=== PATIENT | female | born 1955 | race Caucasian/White ===

== ENCOUNTER 2016-06-01 05:58 | Inpatient (IN) | payer BC ==
[~2016-06-01] VITALS: Ht 162.6 cm; Wt 85.7 kg
[2016-06-01] VITALS (24 sets, daily range): BP systolic 95–148; BP diastolic 50–99; PULSE 57–83; RESP 15–20; Ht 162.6 cm; Wt 85.7 kg
[2016-06-01] MEDS ORDERED: BUPIVACAINE 0.25%/EPI (SDV) 30 ML INJ ONE ×2 (06:50→09:59)
[2016-06-01] MEDS ORDERED: THROMBIN 5000 UNIT VIAL ONE (06:50)
--- NOTE | 2016-06-01 06:59 | PREOPHP ---
DATE OF ADMISSION: 06/01/2016 This patient is coming tomorrow for a vaginal hysterectomy to surgery. HISTORY OF PRESENT ILLNESS: This is a 60-year-old female, 10, para 2, abortions 8. The pat ient with a last menstrual period in 2011. She had consulted me, referred by another physician due to a mass that was coming out of herself and she was very uncomfortable, and she had been having thi s problem of pelvic pressure with vaginal changes and dryness and burning sensation for a long time and it is getting worse lately. PAST MEDICAL HISTORY: The patient has a history of 20 years ago having a left breast cancer at [facility] time she had a mastectomy and radiation 10 years ago. She had a right breast cancer and she had m astectomy and radiation as well with no chemo. She also has a history of hypertension. ALLERGIES: HAS NO ALLERGIES. MEDICATIONS: She uses atenolol and amlodipine. FAMILY HISTORY: Mother with breast cancer, at the age of 90 and father of blood pressure issues. REVIEW OF SYSTEMS: Contributory only for hypertension. She has no history of asthma. No history o f bronchitis. No endocrine disease. She does have a history of losing urine when she sneezes or co ughs. SOCIAL HISTORY: She does not drink or smoke. At the present time she had a partner for the last 15 years. She is sexually active. She only had 3 sexual partners in her lifetime. PHYSICAL EXAMINATION: GENERAL APPEARANCE: Good. VITAL SIGNS: The blood pressure is 112/70, pulse is 80, temperature is 98.6, she weighs 181. She i s 5 feet 4 inches. EXTREMITIES: Normal. The left breast was absent. The right breast had a lumpectomy. CHEST: Clear. HEART: Normal sinus rhythm. BACK: Normal. ABDOMEN: Soft, nontender, no masses. GENITALIA: With a cystourethrocele, grade III and rectocele, grade III. Cervix is healthy. Uterus is prolapsed grade III to IV, and adnexa were nonpalpable. DIAGNOSES: Uterine vaginal prolapse, grade IV, complete uterovaginal procidentia cystocele, urinary stress incontinence, rectocele, constipation, previous right and left breast cancer with a right bruna mpectomy and left mastectomy. She was offered a vaginal total hysterectomy, anterior and posterior repair and a sling, graft and possible bilateral salpingo-oophorectomy. The patient was advised of the possible risks and possible complications of the procedure with the alternatives and options. S he was explained about an ultrasound that revealed that the uterus had multiple fibroids, that they were different sizes and the right ovary and left ovary were normal. The patient was advised that t here is a possibility that I need to do this procedure transabdominally if I cannot make it through vaginally and the procedure should be a vaginal total hysterectomy, possible bilateral salpingo-ooph orectomy, possible total abdominal hysterectomy, anterior and posterior repair, suburethral sling. She has been advised of the possible risks and possible complications of the procedure with her alte rnatives and options. Written information was provided. She had no more questions and agreed to go ahead with the procedure with full understanding and no more questions. Dictated By: ANALISA WADE/ROSALINA Conf#: [id number] DID#: [id number]
[2016-06-01] MEDS ORDERED: CEFAZOLIN 1 GM INJ ONE (07:00)
[2016-06-01] MEDS ORDERED: HYD25 PO (07:00)
[2016-06-01] MEDS ORDERED: ATEN50TA PO (07:00)
[2016-06-01] MEDS ORDERED: CEFAZOLIN 2 GM/50 ML (PMX) 50 ML IVPB SCH (07:00)
[2016-06-01] MEDS ORDERED: PROPOFOL 200 MG INJ ONE (07:00)
[2016-06-01] MEDS ORDERED: ETOMIDATE 20 MG INJ ONE (07:00)
[2016-06-01] MEDS ORDERED: TRIA0.2521 PO (07:00)
[2016-06-01] MEDS ORDERED: AMLO2.5T78 PO (07:00)
[2016-06-01] MEDS ORDERED: LIDOCAINE 100 MG SYRINGE ONE (07:39)
[2016-06-01] MEDS ORDERED: PROPOFOL 100 ML ONE (07:39)
[2016-06-01] MEDS ORDERED: NEOSTIGMINE 3 MG/3 ML SYRINGE ONE (07:39)
[2016-06-01] MEDS ORDERED: MIDAZOLAM 1 MG/ML 2 ML INJ ONE (07:39)
[2016-06-01] MEDS ORDERED: morphine SULFATE/PF (10 MG/10 ML) INJ ONE (07:39)
[2016-06-01] MEDS ORDERED: FENTAnyl 50 MCG/ML VIAL ONE (07:39)
[2016-06-01] MEDS ORDERED: GLYCOPYRROLATE 0.4 MG INJ ONE (07:39)
[2016-06-01] MEDS ORDERED: ROCURONIUM 50 MG INJ ONE (07:39)
[2016-06-01] MEDS ORDERED: ONDANSETRON 4 MG INJ ONE (07:40)
[2016-06-01] MEDS ORDERED: DEXAMETHASONE 4 MG/ML 1 ML INJ ONE (07:40)
--- NOTE | 2016-06-01 07:48 | HPN ---
Date/Time of Note Date/Time of Note DATE: 06/01/16 TIME: 07:47 Interval H&P Admission Note Pt. seen H&P reviewed: No system changes ANALISA MARTEL MD Jun 01, 2016 07:48
[2016-06-01] MEDS ORDERED: POLYMYXIN/BACITRACIN 1L IRRIG ONE (08:50)
[2016-06-01] MEDS ORDERED: ONDANSETRON 4 MG INJ IV PRN ×2 (09:00)
[2016-06-01] MEDS ORDERED: ZOLPIDEM 5 MG TAB PO PRN ×2 (09:00→11:00)
[2016-06-01] MEDS ORDERED: LABETALOL HCL 20MG INJ IV PRN (09:00)
[2016-06-01] MEDS ORDERED: HYDROmorphONE (0.2 MG/ML) 10ML SYG IV PRN ×3 (09:00)
[2016-06-01] MEDS ORDERED: EPHEDrine SULFATE 50 MG/5 ML SYG IV PRN (09:00)
[2016-06-01] MEDS ORDERED: MIDAZOLAM 1 MG/ML 2 ML INJ IV PRN (09:00)
[2016-06-01] MEDS ORDERED: HYDROmorphONE 1 MG/ML SYG IV PRN ×3 (09:00→11:00)
[2016-06-01] MEDS ORDERED: NALOXONE (0.4 MG/ML) INJ IV PRN (09:00)
[2016-06-01] MEDS ORDERED: hydrALAzine 20 MG INJ IV PRN (09:00)
[2016-06-01] MEDS ORDERED: TRIMETHOBENZAMIDE 100 MG/ML VIAL IM PRN ×2 (09:00)
[2016-06-01] MEDS ORDERED: DIPHENHYDRAMINE 50 MG INJ IV PRN ×2 (09:00)
[2016-06-01] MEDS ORDERED: MEPERIDINE 25 MG INJ IV PRN (09:00)
[2016-06-01] MEDS ORDERED: NALBUPHINE HCL (10 MG/1 ML) INJ IV PRN (09:00)
[2016-06-01] MEDS ORDERED: KETOROLAC 30 MG INJ IV PRN (09:00)
[2016-06-01] MEDS ORDERED: FENTAnyl 50 MCG/ML VIAL IV PRN ×3 (09:00)
[2016-06-01] MEDS ORDERED: HEMOSTATIC MATRIX/ THROMBIN 1 EA SYG ZFS ONE (09:42)
[2016-06-01] MEDS ORDERED: METOCLOPRAMIDE 10 MG INJ ONE (10:02)
[2016-06-01] MEDS ORDERED: ALBUMIN HUMAN 5% 500 ML ONE (10:07)
[2016-06-01] MEDS ORDERED: hydrALAzine 20 MG INJ ONE (10:11)
--- NOTE | 2016-06-01 10:51 | OPPN ---
Date/Time of Note Date/Time of Note DATE: 06/01/16 TIME: 10:46 Operative/Procedure Note Pre-Operative Diagnosis COMPLETE UTEROVAGINAL PROLAPSE MIXED INCONTINENCE CONSTIPATION HISTORY OF BILATERAL BREAST CANCER MENOPAUSE Post-Operative Diagnosis SAME FIBROID UTERUS Procedure VAGINAL TOTAL HYSTERECTOMY BSO ANTERIOR AND POSTERIOR REPAIR SUBURETHRAL SLING PROCEDURE OBTRYX SLING ACELL AND XENFORM GRAFT Surgeon: ANALISA MARTEL MD Textile Stylist: RUTHANN NG MD Anesthesiologist: Philippe Betancourt M.D. Implants/Grafts ACELL, XENFORM GRAFT & OBTRYX SLING Estimated blood loss: 100 - 150 ml's Drains NOVA Specimens UTERUS, OVARIES TUBES AND VAGINAL MUCOSA Complications: None Anesthesia type: general ANALISA MARTEL MD Jun 01, 2016 10:51
[2016-06-01] MEDS ORDERED: NON-FORMULARY/PATIENT OWN MED (Triazolam* 0.25 MG) PO PRN (11:00)
[2016-06-01] MEDS ORDERED: BISACODYL (EC) 5 MG TAB PO PRN (11:00)
[2016-06-01] MEDS ORDERED: HYDROCODONE/APAP (5/325) TAB PO PRN ×2 (11:00)
[2016-06-01 11:10] LABS: ADD UMIC NO; URINE BILIRUBIN (Dip) NEGATIVE (NEGATIVE); URINE BLOOD (Dip) NEGATIVE (NEGATIVE); URINE COLOR LT. YELLOW (YELLOW); URINE GLUCOSE (Dip) NEGATIVE (NEGATIVE); URINE KETONES (Dip) 15 (NEGATIVE); URINE LEUKOCYTE ESTERASE (Dip) NEGATIVE (NEGATIVE); URINE NITRITE (Dip) NEGATIVE (NEGATIVE); URINE TOTAL PROTEIN (Dip) NEGATIVE (NEGATIVE); URINE UROBILINOGEN (Dip) 0.2 E.U./dL (0.1-1.0)
--- NOTE | 2016-06-01 12:38 | OPR ---
DATE OF OPERATION: 06/01/2016 OPERATION PERFORMED: 1. Vaginal total hysterectomy. 2. Bilateral salpingo-oophorectomy. 3. Anterior and posterior colporrhaphy. 4. Suburethral mid sling procedure, Obtryx sling, ACell and Xenform graft SURGEON: Analisa Hartman MD DATA ANALYTICS ANALYST: Dr. Monson ANESTHESIOLOGIST: Dr. Betancourt ANESTHESIA: General. PREOPERATIVE DIAGNOSES: Complete uterine vaginal prolapse mixed incontinence, constipation, fibroid uterus. POSTOPERATIVE DIAGNOSIS: Complete uterine vaginal prolapse mixed incontinence, constipation, fibroi d uterus. DESCRIPTION OF PROCEDURE: The patient was given Duramorph anesthesia and general anesthesia, placed in the lithotomy position. The perineal and vaginal area were prepped and draped. A vaginal specu lum was placed in the vagina and the cervix and the bladder were at the level of the introitus. The cervix was held with Munira clamps and the injection of Marcaine and epinephrine was used around the cervix at the cervicovaginal junction. The anterior cul-de-sac was found and the posterior cul-de- sac was found. The cardinal ligaments were clamped with Toni clamps on both sides and tied with # 1 Vicryl and held. The uterine vessels were also clamped with Munira clamps and with Toni clamps, and sutured with [id number] sutures with #1 Vicryl. The dissection was difficulties due to the uterus having multiple fibroids. A myomectomy was done before right the adnexal pedicle was clampe d. The uterine vessels on the left side and right side had been ligated with Toni clamps, and aft er the myomectomy, the right and left tube and ovary and ovarian ligament were clamped and the uteru s was removed. The adnexal pedicles were tied with [id number] sutures with #1 Vicryl. At this time, the decision was to remove both tubes and ovaries since the patient had a history of b ilateral ovarian cancer. The Toni clamp was used to grab the infundibulopelvic ligament in both s ides holding the tube and ovary on each side, removing them. [id number]-[id number]-[id number] sutures with #1 Vicryl were placed in both clamps. The hemostasis was good. At this level, some interrupted sutures were used to the posterior vaginal cuff for hemostasis. The peritonealization was done since there was no active bleeding with a #0 Vicryl and the cavity was closed. The adnexal pedicles and the uterosa cral ligament pedicles were tied to ipsilateral side. The pedicles were brought out to the posterio r and anterior vaginal cuff, respectively. The vagina was closed vertically with interrupted suture s with #1 Vicryl and hemostasis was good. At this time, a Wright catheter was placed in with clean urine. Midline incision was made with Lalo ine and epinephrine. The anterior vaginal mucosa was from the bladder and urethral area. The dissection was done and the bladder was pushed up. The application of the sling was done by en tering the obturator membrane 2 cm below the abductor longus tendon. This was done in both sides an d the needles were retrieved paraurethrally where the sling was attached to the needle, and the need le was brought back through and the arms of the sling were passed through the obturator canal. A pi kathy of ACell and a piece of Xenform were placed, 1 on top of the other, holding the bladder up. The sling was adjusted and on the other side of the sling another piece of Xenform and an ACell graft w as used to cover up the area to give some michelle to the vaginal area to support the bladder. The v agina was closed with interrupted sutures vaginally vertically, after injection of in the corn ers for good control of bleeding. There was no active bleeding. The entrances of the needles where a piece of mesh was seen, was trimmed at the level of the skin and Dermabond was used to seal the i ncisions. At this time, the posterior colporrhaphy was started by making a triangular incision at the perineum . A midline incision was made up to about 5 cm up the vaginal canal. The rectocele was f rom the posterior vaginal mucosa. Plication of the rectum was done with interrupted 2-0 Vicryl sutu re. The excess of vaginal mucosa was done and was removed and the vagina was closed vaginally verti castillo with interrupted sutures with 2-0 Vicryl. At the level of the perineum, a thick stitch with 0 Vicryl was used to the levator ani to lift the perineum and closed the cavity pretty well. The res t of the perineum was closed as a regular episiotomy with 2-0 Vicryl and 3-0 Vicryl and Xeroform gau ze was left in the vagina for control and pressure. There was no active bleeding. Blood loss was l ess than 100 mL. The urine was clear at the end of the procedure and the patient tolerated the proc edure well and left the OR awake and stable. Sponge counts, instrument counts, needle counts were c orrect and intravenous antibiotics were given for prophylaxis. Dictated By: ANALISA WADE/NTS Conf#: [id number] DID#: [id number]
[2016-06-01] MEDS: LACTATED RINGER'S 1,000 ML IV SCH ×2 (13:05→20:48)
[2016-06-01] MEDS: METOCLOPRAMIDE 10 MG TAB PO SCH ×3 (13:07→23:53)
[2016-06-01] MEDS: KETOROLAC 30 MG INJ IV SCH ×3 (13:07→22:57)
[2016-06-01] MEDS: CEFAZOLIN 1 GM/50 ML (PMX) 50 ML IVPB SCH ×2 (14:25→21:45)
[2016-06-01] MEDS: DIPHENHYDRAMINE 50 MG CAP PO PRN (18:27)
[2016-06-01] MEDS: ALPRAZOLAM 0.25 MG TAB NGT SCH (20:49)
[2016-06-02] MEDS: LACTATED RINGER'S 1,000 ML IV SCH ×2 (04:44→10:11)
[2016-06-02] MEDS: KETOROLAC 30 MG INJ IV SCH ×4 (04:45→23:12)
[2016-06-02 04:53] VITALS: BP 132/63; PULSE 63; RESP 18
[2016-06-02] MEDS: METOCLOPRAMIDE 10 MG TAB PO SCH ×4 (05:18→23:12)
[2016-06-02] MEDS: CEFAZOLIN 1 GM/50 ML (PMX) 50 ML IVPB SCH (05:19)
[2016-06-02 05:47] LABS: POTASSIUM 3.8 mmol/L (3.5-5.1)
[2016-06-02 05:50] LABS: CREATININE 0.5 mg/dl (0.44-1.00)
[2016-06-02 06:15] LABS: HEMOGLOBIN 12.1 g/dl (12.0-16.0); LYMPHOCYTES # 1.4 10^3/ul (0.8-2.9); LYMPHOCYTES % 11.8 % (15.0-51.0); MEAN CORPUSCULAR HEMOGLOBIN 28.2 pg (29.0-33.0); MEAN CORPUSCULAR HGB CONC 33.6 g/dl (32.0-37.0); MEAN PLATELET VOLUME 10.5 fl (7.4-10.4); MONOCYTE # 0.6 10^3/ul (0.3-0.9); NEUTROPHIL # 9.6 10^3/ul (1.6-7.5); NEUTROPHILS % 83.2 % (39.0-77.0); PLATELET COUNT 105 10^3/UL (140-440); RED BLOOD COUNT 4.28 10^6/ul (4.20-5.40); RED CELL DISTRIBUTION WIDTH 14.7 % (11.5-14.5); UNCORRECTED WBC 11.6 10^3/ul (4.8-10.8); WHITE BLOOD COUNT 11.6 10^3/ul (4.8-10.8)
[2016-06-02 06:50] LABS: CONDITION 1; LH ANALYZER COMMENTS 1
[2016-06-02 07:24] VITALS: BP 121/76; RESP 19
[2016-06-02] MEDS: ALPRAZOLAM 0.25 MG TAB NGT SCH ×2 (08:36→21:26)
[2016-06-02] MEDS: ATENOLOL 50 MG TAB PO SCH (08:37)
[2016-06-02] MEDS: AMLODIPINE 2.5 MG TAB PO SCH (08:37)
[2016-06-02] MEDS: HYDROCHLOROTHIAZIDE 25 MG TAB PO SCH (08:37)
[2016-06-02] MEDS ORDERED: AMLODIPINE 2.5 MG TAB PO SCH (09:00)
[2016-06-02] MEDS ORDERED: ATENOLOL 50 MG TAB PO SCH (09:00)
[2016-06-02] MEDS ORDERED: HYDROCHLOROTHIAZIDE 25 MG TAB PO SCH (09:00)
[2016-06-02] MEDS ORDERED: INFLUENZA VIRUS VACCINE 0.5 ML SYG IM* ONE (13:00)
--- NOTE | 2016-06-02 13:12 | PN ---
Date/Time of Note Date/Time of Note DATE: 06/02/16 TIME: 13:12 Assessment/Plan Lines/Catheters IV Catheter Type (from [facility]): Peripheral IV Wright in Place (from [facility]): Yes Subjective 24 Hr Interval Summary feels good afebrile passing gases Detailed Summary Eyes: no complaints ENT: no complaints Respiratory: no complaints Cardiovascular: no complaints Gastrointestinal: no complaints Genitourinary: no complaints Musculoskeletal: no complaints Skin: no complaints Neurologic: no complaints Endocrine: no complaints Lymphatic: no complaints Psychological: nl mood/affect, no complaints Immunologic: no complaints Exam/Review of Systems Vital Signs Vitals Vital Signs Date Time Temp Pulse Resp B/P Pulse Ox O2 Delivery O2 Flow Rate FiO2 06/02/16 08:30 Nasal Cannula 2.0 06/02/16 07:24 97.0 63 19 121/76 98 Intake and Output 06/01/16 06/01/16 06/02/16 15:00 23:00 07:00 Intake Total 1250 ml 613 ml Output Total 100 ml 600 ml 800 ml Balance -100 ml 650 ml -187 ml Exam Constitutional: alert, oriented, well developed Psych: nl mood/affect, no complaints Head: atraumatic, normocephalic Eyes: EOMI, nl conjunctiva, nl lids, nl sclera ENMT: mucosa pink and moist, nl external ears & nose, nl lips & teeth, nl nasal mucosa & septum Neck: non-tender, supple Respiratory: clear to auscultation, normal air movement Cardiovascular: nl pulses, regular rate and rhythm Gastrointestinal: nl liver, spleen, non-tender, soft Musculoskeletal: nl extremities to inspection, nl gait and stance Extremities: normal pulses Neurological: MACHINE SPECIALIST II-XII intact, nl mental status, nl speech, nl strength Skin: nl turgor, rash or lesions Lymph: nl lymph nodes Results Result Diagram: 06/02/160 06/02/16439 ANALISA MARTEL MD Jun 02, 2016 13:12
[2016-06-02 19:39] VITALS: BP 139/84; RESP 20
[2016-06-03] MEDS: DIPHENHYDRAMINE 50 MG CAP PO PRN (01:07)
[2016-06-03] MEDS: KETOROLAC 30 MG INJ IV SCH ×2 (05:00→11:00)
[2016-06-03 05:10] LABS: BASOPHILS % 0.2 % (0.0-2.0); EOSINOPHILS % 0.3 % (0.0-7.0); HEMOGLOBIN 12.6 g/dl (12.0-16.0); LYMPHOCYTES # 2.6 10^3/ul (0.8-2.9); LYMPHOCYTES % 20.2 % (15.0-51.0); MEAN CORPUSCULAR HEMOGLOBIN 27.8 pg (29.0-33.0); MEAN CORPUSCULAR HGB CONC 33.1 g/dl (32.0-37.0); MEAN CORPUSCULAR VOLUME 84.1 fl (82.0-101.0); MEAN PLATELET VOLUME 10.3 fl (7.4-10.4); MONOCYTE # 0.7 10^3/ul (0.3-0.9); MONOCYTES % 5.6 % (0.0-11.0); NEUTROPHIL # 9.4 10^3/ul (1.6-7.5); NEUTROPHILS % 73.7 % (39.0-77.0); PLATELET COUNT 108 10^3/UL (140-440); RED BLOOD COUNT 4.53 10^6/ul (4.20-5.40); RED CELL DISTRIBUTION WIDTH 15.3 % (11.5-14.5); UNCORRECTED WBC 12.7 10^3/ul (4.8-10.8); WHITE BLOOD COUNT 12.7 10^3/ul (4.8-10.8)
[2016-06-03 05:39] LABS: CONDITION 1; LH ANALYZER COMMENTS 1
[2016-06-03] MEDS: METOCLOPRAMIDE 10 MG TAB PO SCH ×2 (06:03→12:12)
[2016-06-03 07:42] VITALS: BP 181/95; RESP 20
[2016-06-03] MEDS: ATENOLOL 50 MG TAB PO SCH (08:22)
[2016-06-03] MEDS: AMLODIPINE 2.5 MG TAB PO SCH (08:23)
[2016-06-03] MEDS: HYDROCHLOROTHIAZIDE 25 MG TAB PO SCH (08:23)
[2016-06-03] MEDS: ALPRAZOLAM 0.25 MG TAB NGT SCH (08:24)
[2016-06-03] MEDS ORDERED: INFLUENZA VIRUS VACCINE 0.5 ML (DISPENSING) IM* ONE (09:00)
[2016-06-03 09:08] VITALS: BP 161/69; RESP 19
[2016-06-03 12:16] VITALS: BP 132/75; PULSE 86; RESP 18
--- NOTE | 2016-06-03 13:11 | PD.PPDC ---
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
--- NOTE | 2016-06-03 21:49 | DS ---
DATE OF ADMISSION: 06/01/2016 DATE OF DISCHARGE: 06/03/2016 HISTORY: This is a 60-year-old female, 10, para 2, abortions 8. This patient had seen me w ith the complaint of complete uterovaginal procidentia cystocele, urinary stress incontinence, recto jodee, constipation, and history of previous bilateral breast cancer. The patient underwent a vagina l total hysterectomy with anterior repair and sling, and a graft and posterior repair. She did very well after surgery. She is discharged on her second postoperative day, voiding well without a Fole y catheter, and with a bowel movement, passing gases with pain control with pain medications by lon phipps. The patient is stable and in good condition. She was given advice of what to do and not to do a t home. She is supposed to see me in the office in a week or earlier if she had any problems. She is sent home on Hillman, ibuprofen, and Ambien to sleep. See me in the office if she has no other com plications. Otherwise if she has fever or any other problems or bleeding or any further problems, s he should be able to contact me through my answering service. This patient is stable and in good co ndition to go home. Dictated By: ANALISA WADE/ROSALINA Conf#: [id number] DID#: [id number]
== END 2016-06-03 13:55 | disposition home or self-care (01) | DRG 743 ==
LOC: REC 05:58 → EDSTATUS 07:30 → MS1 11:45
PROVIDERS: ADMIT Obstetrics & Gynecology; ATTEND Obstetrics & Gynecology
PROC: 0UTC7ZZ Resection of Cervix, Via Natural or Artificial Opening (ICD-10-PCS; 2016-06-01)
PROC: 0UT27ZZ Resection of Bilateral Ovaries, Via Natural or Artificial Opening (ICD-10-PCS; 2016-06-01)
PROC: 0UT77ZZ Resection of Bilateral Fallopian Tubes, Via Natural or Artificial Opening (ICD-10-PCS; 2016-06-01)
PROC: 0TSD0ZZ Reposition Urethra, Open Approach (ICD-10-PCS; 2016-06-01)
PROC: 0JQC0ZZ Repair Pelvic Region Subcutaneous Tissue and Fascia, Open Approach (ICD-10-PCS; 2016-06-01)
PROC: 0JUC0JZ Supplement of Pelvic Region Subcutaneous Tissue and Fascia with Synthetic Substitute, Open Approach (ICD-10-PCS; 2016-06-01)
PROC: 0UT97ZZ Resection of Uterus, Via Natural or Artificial Opening (ICD-10-PCS; principal; 2016-06-01 07:30)
PROC: 3E0234Z Introduction of Serum, Toxoid and Vaccine into Muscle, Percutaneous Approach (ICD-10-PCS; 2016-06-03)
DX: N81.3 Complete uterovaginal prolapse (principal); I10 Essential (primary) hypertension; N39.46 Mixed incontinence; K59.00 Constipation, unspecified; Z85.3 Personal history of malignant neoplasm of breast; Z92.3 Personal history of irradiation; Z23 Encounter for immunization
CPT/HCPCS: 80051; 81003; 82565; 84520; 85025; 86850; 86870; 86880; 86900; 86901; 86902; 86920; 87086; 88305; 90686; C1771; C1781; J0360; J0690; J1100; J1885; J2001; J2175; J2250; J2274; J2405; J2710; J2765; J3010; J7120; P9045; Q4166